=== PATIENT | male | born 1990 | race Caucasian/White ===

== ENCOUNTER 2019-04-15 15:36 | Emergency (ER) | payer SELFPAY ==
[~2019-04-15] VITALS: Ht 185.4 cm; Wt 75.0 kg
[2019-04-15 17:03] LABS: BASOPHILS % (AUTO) 1.2 % (0.0-2.0); EOSINOPHILS % (AUTO) 0.7 % (1.0-6.0); HEMOGLOBIN 14.7 g/dL (13.5-17.5); LYMPHOCYTES % (AUTO) 30.4 % (22.0-44.0); MEAN CORPUSCULAR HEMOGLOBIN 30.2 pg (26.0-34.0); MEAN CORPUSCULAR HGB CONC 33.3 G/dL (31.0-37.0); MEAN CORPUSCULAR VOLUME 91 fL (80-100); MONOCYTES # (AUTO) 0.6 K/uL (0.1-1.0); MONOCYTES % (AUTO) 8.6 % (2.0-9.0); NEUTROPHILS # (AUTO) 3.8 K/uL (1.8-7.7); NEUTROPHILS % (AUTO) 59.1 % (40.0-70.0); PLATELET COUNT (AUTO) 271 K/uL (150-450); RED BLOOD CELL COUNT(AUTO) 4.86 MIL/uL (4.50-5.90); RED CELL DISTRIBUTION WIDTH 13.6 % (11.5-14.5)
[2019-04-15 17:13] LABS: ANION GAP 12 mmol/L (8-16); CALCIUM, TOTAL 9.5 mg/dL (8.8-10.5); CARBON DIOXIDE 25 mmol/L (22-29); CHLORIDE 105 mmol/L (98-107); CREATININE 0.98 mg/dL (0.60-1.30); GLOMERULAR FILTR. RATE CALC > 60 mL/min (>60); GLUCOSE,RANDOM 90 mg/dL (70-110); POTASSIUM 4.1 mmol/L (3.5-5.1); SODIUM SERUM 142 mmol/L (136-145); UREA NITROGEN, BLOOD 6 mg/dL (7-18)
[2019-04-15 17:20] LABS: ALANINE AMINOTRANSFERASE 31 U/L (12-78); ALBUMIN 4.1 g/dL (3.4-5.0); ALKALINE PHOSPHATASE 106 U/L (46-116); ASPARTATE AMINOTRANSFERASE 46 U/L (15-37); BILIRUBIN,TOTAL 0.3 mg/dL (0.1-1.0); TOTAL PROTEIN, SERUM 8.5 g/dL (6.4-8.2)
[2019-04-15 18:02] LABS: AMPHET/METH SCREEN,URINE NEGATIVE (NEGATIVE); BARBITURATE SCREEN, URINE NEGATIVE (NEGATIVE); BENZODIAZEPINES SCREEN,URINE NEGATIVE (NEGATIVE); CANNABINOID SCREEN,URINE NEGATIVE (NEGATIVE); COCAINE SCREEN,URINE NEGATIVE (NEGATIVE); METHADONE SCREEN, URINE NEGATIVE (NEGATIVE); OPIATE SCREEN,URINE NEGATIVE (NEGATIVE)
[2019-04-15 18:03] LABS: PHENCYCLIDINE SCREEN,URINE NEGATIVE (NEGATIVE)
[2019-04-15 20:32] VITALS: BP 127/71
== END 2019-04-15 20:36 | disposition home or self-care (01) ==
LOC: EMS 15:39
DX: F10.10 Alcohol abuse, uncomplicated (principal); F17.210 Nicotine dependence, cigarettes, uncomplicated; Y90.8 Blood alcohol level of 240 mg/100 ml or more
CPT/HCPCS: 36415; 80053; 80307; 85025; 99285; G0480